=== PATIENT | female | born 1955 | race Caucasian/White ===

== ENCOUNTER 2016-12-02 11:20 | Inpatient (IN) | payer MEDICAID, OTHER ==
[~2016-12-02] VITALS: Ht 160 cm; Wt 47.0 kg
[2016-12-02] MEDS ORDERED: RISP1 PO (11:26)
[2016-12-02 12:34] LABS: BASOPHILS % (AUTO) 0.7 % (0.0-2.0); EOSINOPHILS % (AUTO) 0.2 % (1.0-6.0); HEMATOCRIT 37.7 % (36-46); HEMOGLOBIN 13.3 g/dL (12.0-16.0); LYMPHOCYTES # (AUTO) 1.1 K/uL (1.0-4.8); LYMPHOCYTES % (AUTO) 21.2 % (22.0-44.0); MEAN CORPUSCULAR HEMOGLOBIN 34.6 pg (26.0-34.0); MEAN CORPUSCULAR HGB CONC 35.1 G/dL (31.0-37.0); MEAN CORPUSCULAR VOLUME 98 fL (80-100); MONOCYTES # (AUTO) 0.5 K/uL (0.1-1.0); MONOCYTES % (AUTO) 9.2 % (2.0-9.0); NEUTROPHILS # (AUTO) 3.6 K/uL (1.8-7.7); NEUTROPHILS % (AUTO) 68.7 % (40.0-70.0); PLATELET COUNT (AUTO) 231 K/uL (150-450); RED BLOOD CELL COUNT(AUTO) 3.83 MIL/uL (4.00-5.20); RED CELL DISTRIBUTION WIDTH 14.4 % (11.5-14.5); WHITE BLOOD COUNT (AUTO) 5.3 K/uL (4.5-11.0)
[2016-12-02 12:47] LABS: ANION GAP 6 mmol/L (8-16); CALCIUM, TOTAL 8.5 mg/dL (8.8-10.5); CARBON DIOXIDE 27 mmol/L (22-29); CHLORIDE 98 mmol/L (98-107); CREATININE 0.85 mg/dL (0.60-1.30); GLOMERULAR FILTR. RATE CALC > 60 mL/min (>60); POTASSIUM 4.3 mmol/L (3.5-5.1); SODIUM SERUM 131 mmol/L (136-145); UREA NITROGEN, BLOOD 16 mg/dL (7-18)
[2016-12-02 12:52] LABS: ALANINE AMINOTRANSFERASE 13 U/L (12-78); ALBUMIN 3.2 g/dL (3.4-5.0); ASPARTATE AMINOTRANSFERASE 12 U/L (15-37); BILIRUBIN,TOTAL 0.6 mg/dL (0.1-1.0); TOTAL PROTEIN, SERUM 8.3 g/dL (6.4-8.2)
[2016-12-02 13:02] LABS: ACETAMINOPHEN < 2 mcg/mL (10-30)
[2016-12-02 13:03] LABS: SALICYLATE 0.8 mg/dL (2.8-20.0)
[2016-12-02] MEDS ORDERED: LOPERAMIDE HCL 2 MG CAPSULE PO PRN (15:30)
[2016-12-02] MEDS ORDERED: ACETAMINOPHEN 325 MG TABLET PO PRN (15:30)
[2016-12-02] MEDS ORDERED: MAG HYDROX/AL HYDROX/SIMETH ES 30 ML SUSPENSION UDCUP PO PRN (15:30)
[2016-12-02] MEDS ORDERED: QUEtiapine FUMARATE 100 MG TABLET PO PRN (15:30)
[2016-12-02] MEDS ORDERED: MAGNESIUM HYDROXIDE SUSPENSION 30 ML UDCUP PO PRN (15:30)
[2016-12-02] MEDS ORDERED: GuaiFENesin/D-METHORPHAN [SUGAR-FREE] 200-20MG/10 ML SYRUP UDCUP PO PRN (18:15)
[2016-12-02] MEDS ORDERED: HydrOXYzine PAMOATE 50 MG CAPSULE PO PRN (18:15)
[2016-12-02 20:59] VITALS: BP 118/73
[2016-12-03 01:39] VITALS: BP 124/73
[2016-12-03] MEDS: LORazepam 2 MG TABLET PO PRN (02:23)
[2016-12-03 08:29] VITALS: BP 108/66
[2016-12-03] MEDS: THIAMINE HCL 100 MG TABLET PO SCH ×2 (09:05→16:22)
[2016-12-03] MEDS: DULoxetine HCL 20 MG CAPSULE PO SCH (09:05)
[2016-12-03] MEDS: MULTIVITAMINS WITH MINERALS, THERAPEUTIC TABLET PO SCH (09:06)
[2016-12-03] MEDS: FOLIC ACID 1 MG TABLET PO SCH (09:56)
[2016-12-03] MEDS: GABAPENTIN 100 MG CAPSULE PO SCH (16:22)
[2016-12-03 16:52] VITALS: BP 108/61
[2016-12-03] MEDS ORDERED: ACETAMINOPHEN 325 MG TABLET PO PRN (18:00)
[2016-12-03] MEDS ORDERED: IBUPROFEN 400 MG TABLET PO PRN (18:00)
[2016-12-03] MEDS: ZOLPIDEM TARTRATE 10 MG TABLET PO PRN (22:24)
[2016-12-04 09:00] VITALS: BP_SYST 117; BP_SYST 98; BP_DIAS 55; BP_DIAS 74
[2016-12-04] MEDS: GABAPENTIN 100 MG CAPSULE PO SCH ×3 (09:32→16:16)
[2016-12-04] MEDS: MULTIVITAMINS WITH MINERALS, THERAPEUTIC TABLET PO SCH (09:32)
[2016-12-04] MEDS: DULoxetine HCL 20 MG CAPSULE PO SCH (09:32)
[2016-12-04] MEDS: FOLIC ACID 1 MG TABLET PO SCH (09:33)
[2016-12-04] MEDS: THIAMINE HCL 100 MG TABLET PO SCH ×2 (09:33→16:16)
[2016-12-04] MEDS ORDERED: DULO20CA30 PO (15:37)
[2016-12-04] MEDS ORDERED: GABA-529 PO (15:37)
[2016-12-04 16:43] VITALS: BP 120/75
[2016-12-04] MEDS: ZOLPIDEM TARTRATE 10 MG TABLET PO PRN (20:29)
[2016-12-04] MEDS: LORazepam 2 MG TABLET PO PRN (20:29)
[2016-12-05 00:01] VITALS: BP 115/68
[2016-12-05] MEDS ORDERED: DULO20CA30 PO (04:41)
[2016-12-05] MEDS ORDERED: GABA-529 PO (04:41)
[2016-12-05] MEDS: DULoxetine HCL 20 MG CAPSULE PO SCH (08:51)
[2016-12-05] MEDS: GABAPENTIN 100 MG CAPSULE PO SCH ×2 (08:51→12:40)
[2016-12-05] MEDS: MULTIVITAMINS WITH MINERALS, THERAPEUTIC TABLET PO SCH (08:51)
[2016-12-05] MEDS: FOLIC ACID 1 MG TABLET PO SCH (08:51)
[2016-12-05] MEDS: THIAMINE HCL 100 MG TABLET PO SCH (08:51)
== END 2016-12-05 13:30 | disposition home or self-care (01) | DRG 751 ==
LOC: EMS 11:24 → EDBD 11:24 → B2S 17:33
PROVIDERS: ADMIT Psychiatry & Neurology Psychiatry; ATTEND Psychiatry & Neurology Psychiatry
DX: F33.9 Major depressive disorder, recurrent, unspecified (principal); E87.1 Hypo-osmolality and hyponatremia; E83.51 Hypocalcemia; E88.09 Other disorders of plasma-protein metabolism, not elsewhere classified; R45.851 Suicidal ideations; Z88.0 Allergy status to penicillin; Z91.19 Patient's noncompliance with other medical treatment and regimen
CPT/HCPCS: 99285; G0480; G0481

== ENCOUNTER 2023-11-27 05:06 | Inpatient (IN) | payer MEDICARE, MEDICAID ==
[~2023-11-27] VITALS: Ht 162.6 cm; Wt 56.3 kg
[~2023-11-27 05:06] MED LIST: DULO20CA71 PO; GABA-529 PO
[2023-11-27 06:40] LABS: BASOPHILS % (AUTO) 0.2 % (0.0-2.0); EOSINOPHILS % (AUTO) 0 % (1.0-6.0); HEMATOCRIT 36.1 % (36-46); HEMOGLOBIN 12.4 g/dL (12.0-16.0); LYMPHOCYTES # (AUTO) 0.3 K/uL (1.0-4.8); LYMPHOCYTES % (AUTO) 5.7 % (22.0-44.0); MEAN CORPUSCULAR HEMOGLOBIN 35.1 pg (26.0-34.0); MEAN CORPUSCULAR HGB CONC 34.5 G/dL (31.0-37.0); MEAN CORPUSCULAR VOLUME 102 fL (80-100); MONOCYTES # (AUTO) 0.3 K/uL (0.1-1.0); MONOCYTES % (AUTO) 5.9 % (2.0-9.0); NEUTROPHILS # (AUTO) 5.1 K/uL (1.8-7.7); PLATELET COUNT (AUTO) 252 K/uL (150-450); RED BLOOD CELL COUNT(AUTO) 3.54 MIL/uL (4.00-5.20); RED CELL DISTRIBUTION WIDTH 13.1 % (11.5-14.5); WHITE BLOOD COUNT (AUTO) 5.8 K/uL (4.5-11.0)
[2023-11-27 06:46] LABS: ANION GAP 9 mmol/L (8-16); CARBON DIOXIDE 27 mmol/L (22-29); CHLORIDE 99 mmol/L (98-107); GLOMERULAR FILTR. RATE CALC 50 mL/min (>60); GLUCOSE,RANDOM 137 mg/dL (70-110); SODIUM SERUM 135 mmol/L (136-145); UREA NITROGEN, BLOOD 17 mg/dL (7-18)
[2023-11-27 06:53] LABS: POTASSIUM 2.9 mmol/L (3.5-5.1)
[2023-11-27 06:58] LABS: NEUTROPHILS % (AUTO) 88.2 % (40.0-70.0)
[2023-11-27 07:13] LABS: ALCOHOL, BLOOD (SERUM) < 3 mg/dL (0-10)
[2023-11-27] MEDS: POTASSIUM CHLORIDE 20 MEQ ER TABLET PO ONE (07:13)
[2023-11-27 07:50] LABS: RBC MORPHOLOGY COMMENT ABNORMAL RBC MORPH
[2023-11-27] MEDS: ACETAMINOPHEN 325 MG TABLET PO ONE (08:24)
[2023-11-27] MEDS: LORazepam 1 MG TABLET PO ONE (09:47)
[2023-11-27] MEDS: HALOPERIDOL 5 MG TABLET PO ONE (09:47)
[2023-11-27 10:09] LABS: COVID AG,FIA SOURCE NASAL SWAB
[2023-11-27 10:23] LABS: ALCOHOL, URINE DRUG SCREEN NEGATIVE (NEGATIVE); AMPHET/METH SCREEN,URINE NEGATIVE (NEGATIVE); BARBITURATE SCREEN, URINE NEGATIVE (NEGATIVE); BENZODIAZEPINES SCREEN,URINE NEGATIVE (NEGATIVE); CANNABINOID SCREEN,URINE POSITIVE (NEGATIVE); COCAINE SCREEN,URINE NEGATIVE (NEGATIVE); METHADONE SCREEN, URINE NEGATIVE (NEGATIVE); OPIATE SCREEN,URINE NEGATIVE (NEGATIVE); PHENCYCLIDINE SCREEN,URINE NEGATIVE (NEGATIVE)
[2023-11-27 10:27] LABS: APPEARANCE,URINE CLEAR (CLEAR); BILIRUBIN,URINE NEGATIVE (NEGATIVE); COLOR,URINE YELLOW (YELLOW); GLUCOSE, URINE (UA) NEGATIVE (NEGATIVE); KETONES,URINE TRACE mg/dL (NEGATIVE); LEUKOCYTE ESTERASE ,URINE SMALL (NEGATIVE); NITRATE,URINE NEGATIVE (NEGATIVE); OCCULT BLOOD,URINE NEGATIVE (NEGATIVE); PROTEIN,URINE 30-70 mg/dL (NEGATIVE); SPECIFIC GRAVITIY, URINE 1.026 (1.003-1.030); UROBILINOGEN,URINE <=1.0 mg/dL (<=1.0)
[2023-11-27 10:30] LABS: SARS-COV2 (COVID) ANTIGEN,FIA Negative (Negative)
[2023-11-27 10:41] LABS: BACTERIA,URINE Moderate /HPF (None Seen)
[2023-11-27 10:42] LABS: SQUAMOUS EPITHELIAL CELL,UR Few /LPF (None Seen)
[2023-11-27 15:09] VITALS: BP 135/71; PULSE 84; RESP 17; TEMP 97.4; TEMP 97.5; O2SAT 98
[2023-11-27] MEDS: RisperiDONE 3 MG TABLET PO SCH (16:51)
[2023-11-27] MEDS ORDERED: ONDANSETRON 4 MG TABLET PO PRN (20:15)
[2023-11-27] MEDS ORDERED: ALBUTEROL SULFATE HFA 90 MCG/PUFF 8 GM INHALER IH PRN (20:15)
[2023-11-27] MEDS ORDERED: MAGNESIUM HYDROXIDE SUSPENSION 30 ML UDCUP PO PRN (20:15)
[2023-11-27] MEDS ORDERED: DOCUSATE SODIUM 100 MG CAPSULE PO PRN (20:15)
[2023-11-27] MEDS ORDERED: BACITRACIN 28 GM OINTMENT TP PRN (20:15)
[2023-11-27] MEDS ORDERED: CloNIDine HCL 0.1 MG TABLET PO PRN (20:15)
[2023-11-27] MEDS ORDERED: PETROLATUM,WHITE 28 GM JELLY TP PRN (20:15)
[2023-11-27] MEDS ORDERED: BENZOCAINE/MENTHOL LOZENGE PO PRN (20:15)
[2023-11-27] MEDS ORDERED: MAG HYDROX/ALUMINUM HYD/SIMETH ES 30 ML SUSPENSION UDCUP PO PRN (20:15)
[2023-11-27] MEDS ORDERED: LOPERAMIDE HCL 2 MG CAPSULE PO PRN (20:15)
[2023-11-27] MEDS: NITROFURANTOIN MONOHYD/M-CRYST 100 MG CAPSULE [MACROBID] PO SCH (21:00)
[2023-11-27 21:14] VITALS: RESP 18
[2023-11-28 00:20] VITALS: BP 127/94; PULSE 105; RESP 18; TEMP 97.8; O2SAT 98
[2023-11-28] MEDS: LORazepam 2 MG TABLET PO PRN (00:23)
[2023-11-28] MEDS: ACETAMINOPHEN 325 MG TABLET PO PRN (00:23)
[2023-11-28 09:59] LABS: BASOPHILS % (AUTO) 0.5 % (0.0-2.0); EOSINOPHILS % (AUTO) 0.5 % (1.0-6.0); HEMATOCRIT 39.3 % (36-46); HEMOGLOBIN 13.3 g/dL (12.0-16.0); LYMPHOCYTES # (AUTO) 0.6 K/uL (1.0-4.8); LYMPHOCYTES % (AUTO) 12.5 % (22.0-44.0); MEAN CORPUSCULAR HEMOGLOBIN 34.8 pg (26.0-34.0); MEAN CORPUSCULAR HGB CONC 33.8 G/dL (31.0-37.0); MEAN CORPUSCULAR VOLUME 103 fL (80-100); MONOCYTES # (AUTO) 0.4 K/uL (0.1-1.0); MONOCYTES % (AUTO) 8.2 % (2.0-9.0); NEUTROPHILS # (AUTO) 3.9 K/uL (1.8-7.7); NEUTROPHILS % (AUTO) 78.3 % (40.0-70.0); PLATELET COUNT (AUTO) 225 K/uL (150-450); RED BLOOD CELL COUNT(AUTO) 3.82 MIL/uL (4.00-5.20); RED CELL DISTRIBUTION WIDTH 13.5 % (11.5-14.5)
[2023-11-28 10:17] LABS: ALBUMIN 2.9 g/dL (3.4-5.0); BILIRUBIN,TOTAL 0.4 mg/dL (0.1-1.0); CALCIUM, TOTAL 8.6 mg/dL (8.8-10.5); CREATININE 0.98 mg/dL (0.60-1.30); MAGNESIUM 2.4 mg/dL (1.80-2.40); PHOSPHORUS 2.5 mg/dL (2.5-4.9); TOTAL PROTEIN, SERUM 8.1 g/dL (6.4-8.2)
[2023-11-28 10:24] LABS: POTASSIUM 2.9 mmol/L (3.5-5.1)
[2023-11-28] MEDS ORDERED: ROMO210S SQ (11:03)
[2023-11-28] MEDS: POTASSIUM CHLORIDE 20 MEQ ER TABLET PO ONE (11:06)
[2023-11-28 11:11] VITALS: BP 151/63; PULSE 86; RESP 18; TEMP 97.1; O2SAT 99
[2023-11-28] MEDS: NICOTINE 21 MG/24 HOUR PATCH TD PRN (14:15)
[2023-11-28 20:53] VITALS: BP 103/84; PULSE 81; RESP 18; TEMP 97.2; O2SAT 97
[2023-11-29 10:06] VITALS: BP 148/82; PULSE 107; RESP 18; TEMP 97.9; O2SAT 100
[2023-11-29 20:53] VITALS: BP 137/82; PULSE 105; RESP 18; TEMP 98.7; O2SAT 97
[2023-11-30 08:22] VITALS: BP 151/72; PULSE 97; RESP 18; TEMP 97.8; O2SAT 98
[2023-11-30 20:57] VITALS: BP 159/96; PULSE 110; RESP 18; TEMP 97.8; O2SAT 98
[2023-12-01 10:50] VITALS: BP 145/83; PULSE 109; RESP 18; TEMP 97.3; O2SAT 99
[2023-12-01 21:14] VITALS: BP 141/80; PULSE 99; RESP 18; TEMP 97; O2SAT 97
[2023-12-01] MEDS: ZOLPIDEM TARTRATE 10 MG TABLET PO PRN (21:27)
[2023-12-02 09:52] VITALS: BP 151/101; PULSE 112; RESP 18; TEMP 98
[2023-12-02 21:34] VITALS: BP 122/75; PULSE 85; RESP 18; TEMP 98.1
[2023-12-03] MEDS: HALOPERIDOL 5 MG TABLET PO PRN (00:32)
[2023-12-03 09:35] VITALS: BP 131/86; PULSE 107; RESP 19; TEMP 97.9; O2SAT 100
[2023-12-03] MEDS: OMEPRAZOLE 20 MG CAPSULE PO PRN (22:04)
[2023-12-03 22:57] VITALS: BP 142/79; PULSE 105; RESP 18; TEMP 97.9; O2SAT 99
[2023-12-04 08:36] VITALS: BP 144/77; PULSE 100; RESP 19; TEMP 97.9; O2SAT 99
[2023-12-04 08:46] VITALS: BP 144/77; PULSE 100; RESP 19; TEMP 96.9; O2SAT 99
[2023-12-04 14:36] VITALS: BP 135/84; PULSE 100; RESP 20; TEMP 98.3; O2SAT 97
[2023-12-04 21:30] VITALS: BP 146/69; PULSE 66; RESP 18; TEMP 97.4; O2SAT 96
[2023-12-04 22:17] VITALS: BP 113/67; PULSE 61; RESP 19; TEMP 97.2; O2SAT 96
[2023-12-04 22:44] VITALS: TEMP 97.5
[2023-12-05 10:41] VITALS: RESP 18
[2023-12-05 12:38] VITALS: BP 111/69; PULSE 68; RESP 17; TEMP 97.8; O2SAT 99
[2023-12-05 22:40] VITALS: BP 134/69; PULSE 104; RESP 18; TEMP 97.8; O2SAT 98
[2023-12-06 09:14] VITALS: BP 150/84; PULSE 103; RESP 18; TEMP 97.6; O2SAT 98
[2023-12-06 10:38] VITALS: BP 142/79; PULSE 79; RESP 17; TEMP 97.9
[2023-12-06 21:00] VITALS: BP 136/82; PULSE 101; RESP 18; TEMP 97.4; O2SAT 97
[2023-12-07 09:20] VITALS: BP 148/86; PULSE 99; RESP 17; TEMP 97.9; O2SAT 97
[2023-12-07 09:30] VITALS: BP 148/86; PULSE 99; RESP 17; TEMP 97.9; O2SAT 97
[2023-12-07 20:17] VITALS: TEMP 98
[2023-12-08 12:52] VITALS: RESP 17; TEMP 97.2; TEMP 97.6
[2023-12-08 13:52] VITALS: RESP 17; TEMP 97.6
[2023-12-08 14:27] VITALS: BP 128/75; PULSE 101; RESP 18; TEMP 98; O2SAT 97
[2023-12-08 18:06] VITALS: RESP 18; TEMP 98
[2023-12-08 19:06] VITALS: RESP 17; TEMP 97.6
[2023-12-08 20:47] VITALS: BP 136/73; PULSE 92; RESP 18; TEMP 97.6
[2023-12-09 10:16] VITALS: RESP 17; TEMP 97.7
[2023-12-09 11:03] VITALS: BP 143/97; PULSE 100; RESP 17; TEMP 97.7
[2023-12-09 11:16] VITALS: RESP 17
[2023-12-09 22:32] VITALS: RESP 18
[2023-12-10 04:46] VITALS: RESP 19
[2023-12-10 05:46] VITALS: RESP 19
[2023-12-10 10:18] VITALS: BP 150/90; PULSE 96; RESP 18; TEMP 96.8; O2SAT 97
[2023-12-10] MEDS ORDERED: RISP3TAB77 PO (11:52)
[2023-12-10] MEDS ORDERED: OMEPRAZOLE 20 MG CAPSULE PO SCH (17:15)
[2023-12-11] MEDS ORDERED: NICOTINE 21 MG/24 HOUR PATCH TD SCH (09:45)
== END 2023-12-10 14:30 | disposition home or self-care (01) | DRG 885 ==
LOC: EMS 05:07 → EDBEDREQ 09:15 → 3EX 14:30 → EMS 14:43
PROVIDERS: ADMIT Psychiatry & Neurology Psychiatry; ATTEND Psychiatry & Neurology Psychiatry
DX: F20.9 Schizophrenia, unspecified (principal); N39.0 Urinary tract infection, site not specified; Z59.00 Homelessness unspecified; G47.00 Insomnia, unspecified; K59.00 Constipation, unspecified; F41.9 Anxiety disorder, unspecified; F31.9 Bipolar disorder, unspecified; F17.210 Nicotine dependence, cigarettes, uncomplicated; Z20.822 Contact with and (suspected) exposure to COVID-19; I10 Essential (primary) hypertension; E87.6 Hypokalemia; Z79.899 Other long term (current) drug therapy; Z88.0 Allergy status to penicillin; Z88.6 Allergy status to analgesic agent
CPT/HCPCS: 80048; 80053; 80307; 81001; 83735; 84100; 84132; 85025; 87086; 87186; 99285; G0378; G0480